=== PATIENT | female | born 1955 | race African-American/Black ===

== ENCOUNTER → 2021-11-13 | Outpatient (CLI) | payer OTHER ==
[2021-11-13 08:31] LABS: ABSOLUTE NEUTROPHILS 1.9 thou/uL (1.4-8.2); BASOPHILS 0.6 % (0.0-2.0); EOSINOPHILS 7.7 % (0.0-3.0); HEMATOCRIT 39.4 % (37.0-47.0); LYMPHOCYTES 39.3 % (24.0-44.0); MCHC 32.9 g/dL (28.0-37.0); MCV 94.2 fL (80.0-100.0); MONOCYTES 10.4 % (1.0-8.0); PLATELET COUNT 243 thou/uL (150-400); RBC 4.18 mil/uL (4.20-5.00); WBC 4.6 thou/uL (4.0-11.0)
[2021-11-13 08:48] LABS: ALBUMIN 4.1 g/dL (3.4-5.0); ANION GAP 11 mmol/L (7-16); BUN 20 mg/dL (7-18); CALCIUM 9.5 mg/dL (8.5-10.1); CHLORIDE 104 mmol/L (98-107); CHOLESTEROL 215 mg/dL (<200); CO2 27 mmol/L (21-32); CREATININE 0.9 mg/dL (0.6-1.0); GLUCOSE 83 mg/dL (74-106); HDL CHOLESTEROL 71 mg/dL (>40); LDL CHOLESTEROL 126 mg/dL (<100); SGOT 31 U/L (15-37); SGPT 39 U/L (30-65); SODIUM 142 mmol/L (136-145); TOTAL BILIRUBIN 1.2 mg/dL (0.2-1.0); TOTAL PROTEIN 7.9 g/dL (6.4-8.2); TRIGLYCERIDE 92 mg/dL (<150); VLDL 18 mg/dL (<40)
== END ==
LOC: LAB 07:49
PROVIDERS: ATTEND Family Medicine
DX: E78.2 Mixed hyperlipidemia (principal); R53.83 Other fatigue